=== PATIENT | female | born 2000 | race Caucasian/White ===

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

== ENCOUNTER 2020-02-20 08:35 | Emergency (ER) | payer MEDICAID ==
--- NOTE | 2020-02-20 08:53 | ER Document Report ---
ED GI/ - General Chief Complaint: Vag Bleeding, +preg <12wks Stated Complaint: VAGINAL BLEEDING Time Seen by Provider: 02/20/20 08:39 Primary Care Provider: BENJA SOTELO MD [ACTIVE STAFF] - Follow up as needed Notes: HPI: 19-year-old -0-0-1 at 8 weeks by ultrasound who presents today with some clots and bleeding starting last night. She states that the clots are golf ball in size. She denies any pain, dysuria, fevers, or vomiting. ROS: See HPI All other review of systems reviewed and otherwise negative Reviewed vital signs and nursing note as charted by RN. PHYSICAL EXAM: CONSTITUTIONAL: Alert and oriented and responds appropriately to questions. Well-appearing; well-nourished HEAD: Normocephalic; atraumatic EYES: Sclera is not pale ENT: Normal nose; no rhinorrhea; moist mucous membranes; pharynx without lesions noted NECK: Supple without meningismus; non-tender; no cervical lymphadenopathy, no masses CARD: Regular rate and rhythm; no murmurs; symmetric distal pulses RESP: Normal chest excursion without splinting or tachypnea; breath sounds clear and equal bilaterally ABD/GI: Normal bowel sounds; non-distended; soft, non-tender currently to deep palpation of all 4 quadrants of the abdomen BACK: The back appears normal and is non-tender to palpation EXT: Normal ROM in all joints; non-tender to palpation; no edema SKIN: No acute lesions noted NEURO: CN 2-12 intact; 5/5 bilateral upper and lower extremity strength with sensation intact to light touch PSYCH: The patient's mood and manner are appropriate. Grooming and personal hygiene are appropriate. TRAVEL OUTSIDE OF THE [place] IN LAST 30 DAYS: No - Related Data Allergies/Adverse Reactions: No Known Allergies Allergy (Unverified 12/01/17 07:52) Past Medical History - Social History Smoking Status: Unknown if Ever Smoked Family History: Reviewed & Not Pertinent Physical Exam - Vital signs Vitals: Resp Pulse Ox 18 98 02/20/20 10:48 02/20/20 10:48 Course - Re-evaluation Re-evalutation: 02/20/20 08:53 Given the above history and physical examination we will obtain an ultrasound, perform a pelvic examination, obtain a quantitative hCG, and reassess. We would like to evaluate the possibility of an ectopic , pending miscarriage, IUP, molar , or urinary tract infection. Patient's previous laboratory work shows that the patient is Rh+. 02/20/20 10:11 Hemoglobin and ultrasound as recorded. Pelvic exam is pending. Patient had increased bleeding in the bathroom and had a syncopal-like episode. She did not completely pass out did not fall to the ground. Heart rate is currently 115. Blood pressure stable. I have ordered a type and screen and fluids. I did perform a pelvic examination showing multiple clots in the vaginal vault. Cervix is fingertip. Ultrasound as recorded. I will call [facility] to discuss the case to see if they believe that the patient will require D&C. 02/20/20 11:33 PRINCIPAL SCIENTIST is currently in surgery. Patient is on the monitor. Heart rate is currently 103. Type and screen has been sent and the patient has a repeat hemoglobin and 130. EKG shows a rate of 103, sinus tachycardia, normal axis, no ST elevation or depression. 02/20/20 12:49 I am re-paging [facility] to see if they were out of the operating room. 02/20/20 14:24 Hemoglobin and ultrasound as recorded. PRINCIPAL SCIENT[facility] came at bedside and evaluated the patient. Repeat hemoglobin as recorded. PRINCIPAL SCIENTIST is comfortable having the patient follow-up in the office next week. Bleeding has slowed. Patient is very comfortable with this plan. No lightheadedness or dizziness. No chest pa in or shortness of breath. - Vital Signs Vital signs: Temp Pulse Resp BP Pulse Ox 21 H 100 02/20/20 11:00 02/20/20 11:00 - Laboratory Result Diagrams: 02/20/20 13:30 Laboratory results interpreted by me: 02/20/20 02/20/20 02/20/20 09:43 09:43 13:30 WBC 10.7 H RBC Hgb Hct RDW 14.1 H Beta HCG, Quant 1591.70 H Urine Protein 100 H Urine Ketones 20 H Urine Blood LARGE H Urine HCG, Qual POSITIVE H 02/20/20 13:30 WBC 14.1 H RBC 3.70 L Hgb 11.1 L Hct 32.1 L RDW 14.1 H Beta HCG, Quant Urine Protein Urine Ketones Urine Blood Urine HCG, Qual Discharge - Discharge Clinical Impression: Incomplete miscarriage with blood clot Condition: Good Disposition: HOME, SELF-CARE Additional Instructions: Come back immediately for any increased bleeding, pain, fever, vomiting, weakness or numbness, lightheadedness, or any other acute problems. Please follow-up with [facility] as we have provided. Referrals: BENJA SOTELO MD [ACTIVE STAFF] - Follow up as needed PAM DALE MD [ACTIVE STAFF] - Follow up as needed
--- NOTE | 2020-02-20 09:54 | RADIOLOGY REPORT (SQ) ---
EXAM DESCRIPTION: U/S [id number] TRNABD 1GES W/ODOP IMAGES COMPLETED DATE/TIME: 02/20/2020 9:35 am REASON FOR STUDY: 12; preg with vag bleeding COMPARISON: None. TECHNIQUE: Transabdominal static and realtime grayscale images acquired of the pelvis. Additional se lected spectral and color Doppler images recorded. All images stored on PACs. CLINICAL AGE: 13 weeks 4 days. BHCG: Not available. LIMITATIONS: None. FINDINGS: UTERUS: No visualized intrauterine . RIGHT ADNEXA: Normal ovary with normal vascular flow. No adnexal free fluid. No adnexal masses. LEFT ADNEXA: Normal ovary with normal vascular flow. No adnexal free fluid. No adnexal masses. FREE FLUID: None. OTHER: Within the cervix is a large complex structure. This measures 8.1 x 8.0 x 4.0 cm. Suspect AB in progress. IMPRESSION: Suspect AB in progress with complex 8.1 x 8.0 x 4.0 cm structure within the cervix. No intrauterine . TECHNICAL DOCUMENTATION: JOB ID: [id number] 2010 [employer]- All Rights Reserved Reading location - IP/workstation name: [email or web address]
[2020-02-20 10:02] LABS: ABSOLUTE LYMPHOCYTES (AUTO) 2.1 10^3/uL (0.5-4.7); ABSOLUTE MONOCYTES (AUTO) 0.8 10^3/uL (0.1-1.4); ABSOLUTE NEUT (AUTO) 7.7 10^3/uL (1.7-8.2); BASOPHILS % (AUTO) 0.3 % (0-2); EOSINOPHILS % (AUTO) 0.2 % (0-6); HEMOGLOBIN 12.7 g/dL (12.0-15.5); MEAN CORPUSCULAR HEMOGLOBIN 29.7 pg (27.0-33.4); MEAN CORPUSCULAR HGB CONC 34.3 g/dL (32.0-36.0); MEAN CORPUSCULAR VOLUME 87 fl (80-97); MONOCYTES % (AUTO) 7.6 % (3-13); PLATELET COUNT 305 10^3/uL (150-450); RED BLOOD COUNT 4.27 10^6/uL (3.72-5.28); RED CELL DISTRIBUTION WIDTH 14.1 % (11.5-14.0); SEGMENTED NEUTROPHILS % (AUTO) 71.9 % (42-78); TOTAL CELLS COUNTED % (AUTO) 100 %; WHITE BLOOD COUNT 10.7 10^3/uL (4.0-10.5)
[2020-02-20] MEDS ORDERED: PROMETHAZINE HCL INJ 25 MG/1 ML VIAL IV ONE (10:14)
[2020-02-20 13:43] LABS: HEMATOCRIT 32.1 % (36.0-47.0); HEMOGLOBIN 11.1 g/dL (12.0-15.5); MEAN CORPUSCULAR HEMOGLOBIN 29.9 pg (27.0-33.4); MEAN CORPUSCULAR HGB CONC 34.4 g/dL (32.0-36.0); MEAN CORPUSCULAR VOLUME 87 fl (80-97); PLATELET COUNT 256 10^3/uL (150-450); RED CELL DISTRIBUTION WIDTH 14.1 % (11.5-14.0); WHITE BLOOD COUNT 14.1 10^3/uL (4.0-10.5)
--- NOTE | 2020-02-20 13:55 | PDOC CONSULTATION ---
Consultation Consult Date: 02/20/20 Provider Consulted: PAM DALE Consult reason:: status of SAB History of Present Illness Patient complains of: heavy vaginal bleeding. reportedly 8 wks per patient. began bleeding last evening History of Present Illness: CHARITY JOSEPH is a 19 year old female Social History Smoking Status: Unknown if Ever Smoked Family History Parental Family History Reviewed: No Children Family History Reviewed: No Sibling(s) Family History Reviewed.: No Medication/Allergy Home Medications: Pnv No.95/Ferrous Fum/Folic AC [ Vitamins Tablet] 1 each PO DAILY 12/01/17 Allergies/Adverse Reactions: No Known Allergies Allergy (Unverified 12/01/17 07:52) Physical Exam - Physical Exam Vital Signs: Temp Pulse Resp BP Pulse Ox 21 H 100 02/20/20 11:00 02/20/20 11:00 Intake & Output 02/19/20 02/20/20 02/21/20 06:59 06:59 06:59 Weight 54.431 kg General appearance: PRESENT: no acute distress, cooperative - Gynecological Exam Labia: normal Urethra: normal Introitus: normal Perineum: normal Vagina: other - several large clots wiped away with 4x4. Cervix: other - closing. small amount of bleeding at os but not heavy. no tissue noted . Cervix: normal Uterus: normal Adhexa: normal Result Laboratory Results: 02/20/20 13:30 02/20/20 02/20/20 02/20/20 09:43 10:46 13:30 WBC 10.7 H 14.1 H RBC 4.27 3.70 L Hgb 12.7 11.1 L Hct 37.0 32.1 L MCV 87 87 MCH 29.7 29.9 MCHC 34.3 34.4 RDW 14.1 H 14.1 H Plt Count 305 256 Seg Neutrophils % 71.9 Blood Type A POSITIVE Antibody Screen NEGATIVE Impressions: Obstetrics Ultrasound 02/20/20 08:50 IMPRESSION: Suspect AB in progress with complex 8.1 x 8.0 x 4.0 cm structure within the cervix. No intrauterine . Assessment & Plan - Diagnosis (1) Spontaneous Is this a current diagnosis for this admission?: Yes - Time Time Spent: 30 to 50 Minutes Critical Time spent with patient: Less than 15 minutes Anticipated Discharge Disposition: Home, Self Care Anticipated Discharge Timeframe: within 24 hours - Plan Summary Plan Summary: patient seems to have passed majority of POC. I have counseled her to continue to expect some occasional heavy clots but have given her precautions to return to the ER if soaking heavy pad more than 2 in an hour or if she runs a fever >101. She is otherwise to follow up in [facility] in one week.
[2020-02-20 14:11] LABS: APPEARANCE,URINE SLIGHTLY-CLOUDY; BILIRUBIN,URINE NEGATIVE (NEGATIVE); COLOR,URINE YELLOW; GLUCOSE, URINE NEGATIVE (NEGATIVE); KETONES,URINE 20 mg/dL (NEGATIVE); LEUKOCYTE ESTERASE,URINE NEGATIVE (NEGATIVE); NITRITE,URINE NEGATIVE (NEGATIVE); PROTEIN,URINE 100 mg/dL (NEGATIVE); URINE SPECIFIC GRAVITY 1.024; UROBILINOGEN,URINE NEGATIVE mg/dL (<2.0)
[2020-02-20] MEDS ORDERED: NORMAL SALINE 1000 ML 1,000 ML IV ONE (14:31)
--- NOTE | 2020-02-21 09:42 | EKG REPORT ---
SEVERITY:- OTHERWISE NORMAL ECG - SINUS TACHYCARDIA : Confirmed by: Andrew Pizano MD 21-Feb-2020 09:41:23
== END 2020-02-20 15:28 | disposition home or self-care (01) ==
LOC: ER 08:35
DX: O03.4 Incomplete spontaneous abortion without complication (principal)
CPT/HCPCS: 93005; 99285; 96360; 86900; 86901; 36415; 86850; 84702; 85025; 81025; 81001; 76801; 93010; J7030

== ENCOUNTER → 2020-07-03 | Outpatient (CLI) | payer SELFPAY ==
--- NOTE | 2020-07-03 14:55 | RADIOLOGY REPORT (SQ) ---
EXAM DESCRIPTION: U/S [id number] TRNABD 1GES W/ODOP IMAGES COMPLETED DATE/TIME: 07/03/2020 1:19 pm REASON FOR STUDY: SIZE AND DATES COMPARISON: None. TECHNIQUE: Transabdominal static and realtime grayscale images acquired of the pelvis. Additional se lected spectral and color Doppler images recorded. All images stored on PACs. bHCG: Not available CLINICAL DATES: LMP unknown. LIMITATIONS: None. FINDINGS: FETUS: Single Living intrauterine . ULTRASOUND EGA: 10 weeks 0 days ULTRASOUND RAKESH: 01/29/2021 EFW: Not applicable less than 20 weeks. CRL: 3.17 cm FHR: 160 beats per minute. SURVEY: No visualized anomalies. AMNIOTIC FLUID: Adequate amount. PLACENTA: Not yet developed due to early gestation. SUBCHORIONIC BLEED: Yes SIZE OF BLEED: Small, 2.1 x 0.9 x 0.7 cm UTERUS: No masses. No anomalies. CERVICAL LENGTH: 3.6 cm Closed. RIGHT ADNEXA: Normal ovary with normal vascular flow. No adnexal free fluid. No adnexal masses. Measures 3.1 x 2.7 x 2.2 cm LEFT ADNEXA: Normal ovary with normal vascular flow. No adnexal free fluid. No adnexal masses. Measures 3.1 x 2.2 x 1.6 cm FREE FLUID: None. OTHER: No other significant finding. IMPRESSION: Single live intrauterine . EGA 10 weeks 0 days Trimester of : First trimester - 0 to 13 weeks. TECHNICAL DOCUMENTATION: JOB ID: [id number] 2010 [employer]- All Rights Reserved Reading location - IP/workstation name: [email or web address]
== END ==
LOC: RAD 14:15
PROVIDERS: ATTEND Midwife
DX: Z34.81 Encounter for supervision of other normal pregnancy, first trimester (principal); Z3A.10 10 weeks gestation of pregnancy
CPT/HCPCS: 76801